=== PATIENT | male | born 1985 | race Asian ===

== ENCOUNTER 2019-03-18 20:13 | Emergency (ER) | payer SELFPAY ==
[~2019-03-18] VITALS: Ht 172.7 cm; Wt 72.6 kg
[2019-03-18] MEDS ORDERED: BUPROPION XL300 MG ORAL (20:22)
[2019-03-18] MEDS ORDERED: LEXAPRO10 MG ORAL (20:22)
[2019-03-18 20:29] VITALS: BP 147/82
--- NOTE | 2019-03-18 20:29 | NUR ---
ED Nurse Note: Patient walked in to ER c/o right wrist pain. Per patient heavy box fell on his wrist, and since that he can not move his arm, also patient states his fingers feels numb. AAO x4, VSS at this time, skin is dry, intact, warm to touch.
[2019-03-18] MEDS ORDERED: IBUPROFEN600 MG ORAL (23:01)
[2019-03-18 23:13] VITALS: BP 147/82
--- NOTE | 2019-03-18 23:14 | NUR ---
ED Nurse Note: Pt cleared by health care Provider for discharge. DC instructions/prescription was given and explained to pt and verbalized understanding of teachings. All medical deviecs such as ID band removed. Pt is AAO x4, ambulatory and left with all personal belongings.
--- NOTE | 2019-03-19 01:46 | Emergency Room Report ---
History of Present Illness General Chief Complaint: Upper Extremity Injury Source: Patient Present Illness HPI 33-year-old male presents ED for evaluation. States that at work today a box fell from a shelf and landed on his hands. States the box was very heavy. Presents with pain and swelling to right hand. Pain is dull, 8 out of 10, nonradiating. Denies any other injuries. Rating relieving factors. Denies any other associated symptoms Allergies: Coded Allergies: No Known Allergies (Unverified , 03/18/19) Patient History Past Medical History: asthma Past Surgical History: none Pertinent Family History: none Social History: Denies: smoking, alcohol use, drug use Immunizations: UTD Reviewed Nursing Documentation: PMH: Agreed; PSxH: Agreed Nursing Documentation-PMH Past Medical History: No History, Except For Hx Asthma: Yes Review of Systems All Other Systems: negative except mentioned in HPI Physical Exam Vital Signs Date Time Temp Pulse Resp B/P (MAP) Pulse Ox O2 Delivery O2 Flow Rate FiO2 03/18/19 20:18 98.2 55 14 96 03/18/19 20:29 147/82 Sp02 EP Interpretation: reviewed, normal General Appearance: no apparent distress, alert, GCS 15, non-toxic Head: normocephalic Eyes: bilateral eye normal inspection, bilateral eye PERRL ENT: normal ENT inspection Neck: normal inspection Respiratory: normal inspection Cardiovascular #1: normal inspection Gastrointestinal: normal inspection Rectal: deferred Genitourinary: no CVA tenderness Musculoskeletal: swelling - R hand Neurologic: alert, oriented x3, responsive, motor strength/tone normal, sensory intact, speech normal Psychiatric: normal inspection Skin: normal inspection Lymphatic: normal inspection Procedures Splinting Splinting : Consent: Verbal Pre-Made Type: velcro Splint: wrist Pre-Proc Neuro Vasc Exam: normal Post-Proc Neuro Vasc Exam: normal Patient Tolerated: Well Complications: None Medical Decision Making Diagnostic Impression: Primary Impression: Hand contusion Qualified Codes: S60.221A - Contusion of right hand, initial encounter ER Course Hospital Course 33 yo M presents with R hand pain/swelling s/p falling box Differential diagnoses include: Fracture, dislocation, sprain, contusion Clinical course Patient placed on stretcher. After initial history and physical, I ordered pain medications and Xrays of R hand Xrays read shows no acute fracture/dislocation. Positive soft tissue swelling Placed in a splint. Discussed findings with patient. Safe for discharge close outpatient follow-up. We'll provide ortho referrals. Modified activity Diagnosis - hand contusion Stable and discharged to home with prescription for Motrin. apply ice, keep elevated. weight bear as tolerated. Followup with PMD/ortho. Return to ED if symptoms recur or worsen Other X-Ray Diagnostic Results Other X-Ray Diagnostic Results : X-Ray ordered: R hand # of Views/Limited Vs Complete: 3 View Indication: Pain EP Interpretation: Yes Interpretation: no dislocation, no fractures Impression: No acute disease Electronically Signed by: Electronically signed by Praveen Serra MD Last Vital Signs Date Time Temp Pulse Resp B/P (MAP) Pulse Ox O2 Delivery O2 Flow Rate FiO2 03/18/19 23:13 98.2 14 147/82 96 03/18/19 20:18 55 Status: improved Disposition: HOME, SELF-CARE Condition: Stable Scripts Ibuprofen* (MOTRIN*) 600 Mg Tablet 600 MG ORAL Q8H PRN for For Pain, #30 TAB 0 Refills Prov: Praveen Serra MD 03/18/19 Referrals: NON PHYSICIAN (PCP) [facility] 24 hour /7 days a week by Appointment Only [address] [address] Departure Forms: Return to Work Return to Work Date: March 21, 2019 Work Restrictions: No Heavy Lifting Patient Instructions: Hand Contusion, [id number] Praveen Serra MD March 19, 2019 01:46
--- NOTE | 2019-03-19 11:09 | Diagnostic Imaging Report ---
Indication: Right hand pain Findings: 3 views of the right hand were obtained. Normal bony mineralization and alignment are demonstrated. No acute fractures, erosions, or periosteal reaction are seen. Mild soft tissue swelling noted. Impression: No acute findings.
== END 2019-03-19 00:05 | disposition home or self-care (01) ==
LOC: EMR 20:29
DX: S60.221A Contusion of right hand, initial encounter (principal); J45.909 Unspecified asthma, uncomplicated; W20.8XXA Other cause of strike by thrown, projected or falling object, initial encounter; Y92.9 Unspecified place or not applicable; Y99.0 Civilian activity done for income or pay
CPT/HCPCS: 29125; 99283